=== PATIENT | female | born 1950 | race Caucasian/White ===

== ENCOUNTER → 2018-12-03 | Outpatient (CLI) | payer MEDICARE, OTHER ==
--- NOTE | 2018-12-03 09:14 | RAD ---
Left lower extremity bone length exam, 12/03/2018: HISTORY: Left knee osteoarthritis, surgical planning AP views of the left femur and lower leg were obtained with skin markers placed laterally as requested to facilitate preoperative bone length measurements. There is severe joint space narrowing, marginal spurring and mild lateral tibial subluxation at the left knee. No other significant abnormality is identified on these limited views. Electronically signed by: Ken Staley MD (12/03/2018 9:09 AM) [facility]
--- NOTE | 2018-12-03 11:24 | RAD ---
MR of the left knee - Gomez and Nephew protocol History: CHRONIC LEFT KNEE PAIN, GOMEZ AND NEPHEW PROTOCOL. Technique: Images are obtained in accordance with the standard Gomez and Nephew protocol. Note this is not a diagnostic exam, but solely for the purpose of Gomez and Nephew medical educator construction. Medial meniscal tear. Lateral meniscal tear. Anterior cruciate ligament is poorly defined. Severe generalized primary osteoarthritis. Probable posterior loose body. Moderate joint effusion. Small Piper's cyst. Electronically signed by: Akhil Umana MD (12/03/2018 11:20 AM) [id number]
== END | disposition home or self-care (01) ==
LOC: RAD 14:06
PROVIDERS: ATTEND Orthopaedic Surgery
DX: S83.242A Other tear of medial meniscus, current injury, left knee, initial encounter (principal); S83.282A Other tear of lateral meniscus, current injury, left knee, initial encounter; S83.192A Other subluxation of left knee, initial encounter; M17.12 Unilateral primary osteoarthritis, left knee; M25.462 Effusion, left knee; M71.22 Synovial cyst of popliteal space [Baker], left knee; M76.892 Other specified enthesopathies of left lower limb, excluding foot; X58.XXXA Exposure to other specified factors, initial encounter; Y93.89 Activity, other specified; Y92.89 Other specified places as the place of occurrence of the external cause; Y99.8 Other external cause status
CPT/HCPCS: 73721; 77073

== ENCOUNTER → 2018-12-27 | Outpatient (CLI) | payer MEDICARE, OTHER ==
[~2018-12-27] MED LIST: ATOR20TA58 PO; DIPH25CA58 PO; HYDR-2763 PO; IBUP200T58 PO; LISI-334 PO; MELO7.5T29 PO; METF500T16 PO; NAPR-514 PO; TRIA1TAB3 PO; VENTOLIN HFA18 GM INH
[2018-12-27 09:32] LABS: BASO # 0.1 x10^3/uL (0.0-0.2); BASO % 1 % (0-3); EOS # 0.4 x10^3/uL (0.0-0.7); EOS % 6 % (0-3); HEMATOCRIT 45.8 % (36.0-47.0); HEMOGLOBIN 14.9 g/dL (12.0-15.5); LYMPH # 1.5 x10^3/uL (1.0-4.8); LYMPH % 22 % (24-48); MEAN CORPUSCULAR HEMOGLOBIN 28 pg (25-35); MEAN CORPUSCULAR HGB CONC 33 g/dL (31-37); MEAN CORPUSCULAR VOLUME 85 fL (79-100); MONO # 0.6 x10^3/uL (0.0-1.1); MONO % 8 % (0-9); NEUT # 4.2 x10^3uL (1.8-7.7); NEUT % 63 % (31-73); PLATELET COUNT 294 x10^3/uL (140-400); RED BLOOD COUNT 5.38 x10^6/uL (3.50-5.40); RED CELL DISTRIBUTION WIDTH 14.1 % (11.5-14.5); WHITE BLOOD COUNT 6.7 x10^3/uL (4.0-11.0)
[2018-12-27 09:46] LABS: PROTHROMBIN TIME PATIENT 12.1 SEC (11.7-14.0)
[2018-12-27 09:54] LABS: ALBUMIN 3.6 g/dL (3.4-5.0); CALCIUM 9.4 mg/dL (8.5-10.1); GFR 54.8; POTASSIUM 3.9 mmol/L (3.5-5.1)
[2018-12-27 12:19] LABS: BILIRUBIN,URINE NEGATIVE (NEG); CLARITY,URINE CLEAR; COLOR,URINE YELLOW; NITRITE,URINE NEGATIVE (NEG); PROTEIN,URINE NEGATIVE (NEG-TRACE); UROBILINOGEN,URINE 0.2 mg/dL (0.2 mg/dL)
[2018-12-27 12:47] LABS: SQUAMOUS EPITHELIAL CELL,UR FEW /LPF
[2018-12-27 12:48] LABS: HYALINE CASTS, URINE MODERATE /HPF
[2018-12-27 12:49] LABS: BACTERIA,URINE 0 /HPF (0-FEW); RBC,URINE 0 /HPF (0-2); WBC,URINE OCC /HPF (0-4)
--- NOTE | 2018-12-27 13:08 | EKG ---
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
--- NOTE | 2018-12-27 16:44 | RAD ---
Chest, 2 views, 12/27/2018: HISTORY: Preop evaluation for an knee surgery The heart size and pulmonary vascularity are within normal limits. There is calcific plaquing and tortuosity of the thoracic aorta. A small 7 mm nodule is projected over the right perihilar region. No pulmonary consolidation is seen. There is no evidence of pleural fluid. Moderate marginal spurring is present in the spine. IMPRESSION: 1. Aortic atherosclerosis. 2. Small right perihilar pulmonary nodule. Comparison with previous chest radiographs if available would be most helpful. If none are available, CT scanning should be considered for further evaluation. Electronically signed by: Ken Staley MD (12/27/2018 4:41 PM) [facility]
[2018-12-27 23:09] LABS: HEMOGLOBIN A1C 6.8 % (4.8-5.6)
== END | disposition home or self-care (01) ==
LOC: SURGPAT 13:01
PROVIDERS: ATTEND Orthopaedic Surgery
DX: Z01.818 Encounter for other preprocedural examination (principal); M17.12 Unilateral primary osteoarthritis, left knee; I10 Essential (primary) hypertension; I70.0 Atherosclerosis of aorta; R91.1 Solitary pulmonary nodule
CPT/HCPCS: 36415; 71046; 80048; 81001; 82040; 82306; 83036; 85025; 85610; 85651; 85730; 87641; 93005

== ENCOUNTER 2019-01-18 05:38 | Inpatient (IN) | payer MEDICARE, OTHER ==
[2019-01-18] VITALS (9 sets, daily range): BP systolic 112–124; BP diastolic 56–66
[~2019-01-18] VITALS: Ht 170.2 cm; Wt 117.0 kg
[~2019-01-18 05:38] MED LIST changes: +BACITRACIN 50,000 UNIT in IV NORMAL SALINE 1000ML BAG 1,000 ML IRR ONE; -HYDR-2763 PO; -MELO7.5T29 PO
[2019-01-18] MEDS ORDERED: TRANEXAMIC ACID 1,000 MG in IV NS 50ML -- 1ST BAG INJ ONE (06:00)
[2019-01-18] MEDS ORDERED: HYDROcodone/APAP 7.5/325MG 1 TAB TABLET PO PRN (06:00)
[2019-01-18] MEDS ORDERED: MORPHINE SULFATE 5 MG, KETOROLAC 30MG VIAL 30 MG, ROPIVacaine 0.5% PF 60 ML, EPINEPHrin... INT ART ONE ×5 (06:00)
[2019-01-18] MEDS ORDERED: MELOXICAM 7.5 MG TABLET PO PRN (06:00)
[2019-01-18] MEDS ORDERED: VANCOMYCIN 1 GM VIAL. ONE (06:02)
[2019-01-18] MEDS ORDERED: TOBRAMYCIN POWDER 1.2 GM VIAL. ONE (06:02)
[2019-01-18] MEDS ORDERED: MELO7.5T29 PO (06:17)
[2019-01-18] MEDS: IV RINGERS,LACTATED 1000ML 1,000 ML IV SCH ×2 (06:37→10:57)
[2019-01-18] MEDS ORDERED: HYDR-2763 PO (06:44)
[2019-01-18] MEDS ORDERED: fentaNYL PF VIAL 100 MCG/2 ML VIAL IV PRN ×3 (07:00→09:45)
[2019-01-18] MEDS ORDERED: ONDANSETRON PF 4 MG/2 ML VIAL. IV PRN (07:00)
[2019-01-18] MEDS ORDERED: LIDOCAINE 1% PF 2 ML VIAL. ID PRN (07:00)
[2019-01-18] MEDS ORDERED: HYDROmorphone 2 MG/ML VIAL IV PRN (07:00)
[2019-01-18] MEDS ORDERED: MORPHINE SULFATE 2 MG/ML VIAL. IV PRN ×2 (07:00→09:45)
[2019-01-18] MEDS ORDERED: PROCHLORPERAZINE 10 MG/2 ML VIAL. IV PRN (07:00)
[2019-01-18] MEDS ORDERED: PROPOFOL 20 ML IV ONE (07:11)
[2019-01-18] MEDS ORDERED: FAMOTIDINE 20 MG/2 ML VIAL ONE (07:11)
[2019-01-18] MEDS ORDERED: DEXAMETHASONE SOD PHOS 20 MG/5 ML VIAL. ONE (07:11)
[2019-01-18] MEDS ORDERED: LIDOCAINE 2% PF 5 ML VIAL. ONE (07:11)
[2019-01-18] MEDS ORDERED: ONDANSETRON PF 4 MG/2 ML VIAL. ONE (07:11)
[2019-01-18] MEDS ORDERED: MIDAZOLAM HCL/PF 2 MG/2 ML VIAL. ONE (07:12)
[2019-01-18] MEDS ORDERED: fentaNYL PF VIAL 100 MCG/2 ML VIAL ONE ×2 (07:12→08:00)
[2019-01-18] MEDS ORDERED: ROCURONIUM 50 MG/5 ML VIAL. ONE (07:12)
[2019-01-18] MEDS ORDERED: KETOROLAC 30 MG/ML INJ FOR OR. INJ ONE (07:14)
--- NOTE | 2019-01-18 07:29 | PDOC1 ---
History and Physical Date of Admission Date of Admission DATE: 01/18/19 TIME: 07:21 Identification/Chief Complaint Chief Complaint left knee osteoarthritis pain Source Source: Chart review, Patient History of Present Illness History of Present Illness 68 year old with left knee pain, here for elective total knee arthroplasty. She' s been doing injections for both knees for about 15 years now. Initially it helped quite a bit but has been hoping less and less. Her last injection was with [facility] in . The knee arthritis is gotten so bad that she had to skip a cruise because the knee arthritis prevents her from walking. The left knee is the one that really prevents her from walking more than the right. She's been on NSAIDs, which she started for her shoulder and might be getting some relief to the knee but her knee is still painful. She is a borderline type II diabetic but is on metformin. History of smoking for 20 years but quit 31 years ago when she was 37 years old. She denies coronary artery disease. She is on medication for hypertension. She may have a nickel sensitivity, and she reports itching that occurs with earrings and I would recommend an Oxinium (low nickel, hypoallergenic) implant. Past Medical History Cardiovascular: HTN Past Surgical History Past Surgical History foot surgeries Family History Family History: Cancer, Hypertension Social History Smoke: Quit Current Medications Current Medications Current Medications Bacitracin 39567 unit/Sodium Chloride 1,000 ml @ 1,000 mls/hr 1X ONCE IRR ; Start 01/17/19 at 06:00; Stop 01/17/19 at 06:59; Status UNV Cefazolin Sodium/ Dextrose 50 ml @ 100 mls/hr 1X PREOP PRN IV PRIOR TO PROCEDURE; Start 01/17/19 at 06:00; Status UNV Ondansetron HCl (Zofran) 4 mg PRN Q6HRS PRN IV NAUSEA/VOMITING; Start 01/18/19 at 07:00; Stop 01/19/19 at 06:59 Fentanyl Citrate (Fentanyl 2ml Vial) 25 mcg PRN Q5MIN PRN IV MILD PAIN; Start 01/18/19 at 07:00; Stop 01/19/19 at 06:59 Fentanyl Citrate (Fentanyl 2ml Vial) 50 mcg PRN Q5MIN PRN IV MODERATE TO SEVERE PAIN; Start 01/18/19 at 07:00; Stop 01/19/19 at 06:59 Morphine Sulfate (Morphine Sulfate) 1 mg PRN Q10MIN PRN IV SEVERE PAIN; Start 01/18/19 at 07:00; Stop 01/19/19 at 06:59 Ringer's Solution 1,000 ml @ 30 mls/hr Q24H IV Last administered on 01/18/19at 06:37; Start 01/18/19 at 07:00; Stop 01/18/19 at 18:59 Lidocaine HCl (Xylocaine-Mpf 1% 2ml Vial) 2 ml PRN 1X PRN ID PRIOR TO IV START ; Start 01/18/19 at 07:00; Stop 01/19/19 at 06:59 Hydromorphone HCl (Dilaudid) 0.5 mg PRN Q10MIN PRN IV SEV PAIN, Second choice; Start 01/18/19 at 07:00; Stop 01/19/19 at 06:59 Prochlorperazine Edisylate (Compazine) 5 mg PACU PRN PRN IV NAUSEA, MRX1; Start 01/18/19 at 07:00; Stop 01/19/19 at 06:59 Morphine Sulfate 5 mg/Ketorolac Tromethamine 30 mg/Ropivacaine 60 ml/ Epinephrine HCl 0.5 mg/Sodium Chloride 100 ml @ 100 mls/hr 1X ONCE INT ART ; Start 01/18/19 at 06:00; Stop 01/18/19 at 07:00; Status DC Meloxicam (Mobic) 15 mg 1X PREOP PRN PO PRIOR TO PROCEDURE; Start 01/18/19 at 06:00; Stop 01/18/19 at 18:00 Acetaminophen/ Hydrocodone Bitart (Lortab 7.5/325) 2 tab 1X PREOP PRN PO PRIOR TO PROCEDURE; Start 01/18/19 at 06:00; Stop 01/18/19 at 18:00 Cefazolin Sodium/ Dextrose 50 ml @ 100 mls/hr 1X PREOP PRN IV PRIOR TO PROCEDURE; Start 01/18/19 at 06:00; Stop 01/18/19 at 18:00 Tranexamic Acid 1000 mg/Sodium Chloride 60 ml @ 60 mls/hr 1X PERIOP ONCE INJ ; Start 01/18/19 at 06:00; Stop 01/18/19 at 07:00; Status DC Tranexamic Acid 1000 mg/Sodium Chloride 60 ml @ 60 mls/hr 1X PERIOP ONCE INJ ; Start 01/18/19 at 08:00; Stop 01/18/19 at 08:59 Vancomycin HCl (Vancomycin) 1 gm STK-MED ONCE .ROUTE ; Start 01/18/19 at 06:02; Stop 01/18/19 at 07:03; Status DC Tobramycin Sulfate (Tobramycin Powder) 1.2 gm STK-MED ONCE .ROUTE ; Start at 06:02; Stop 01/18/19 at 07:03; Status DC Propofol 20 ml @ As Directed STK-MED ONCE IV ; Start 01/18/19 at 07:11; Stop 10/27 at 07:13; Status DC Dexamethasone Sodium Phosphate (Decadron) 20 mg STK-MED ONCE .ROUTE ; Start 10/27 at 07:11; Stop 01/18/19 at 07:13; Status DC Famotidine (Pepcid Vial) 20 mg STK-MED ONCE .ROUTE ; Start 01/18/19 at 07:11; Stop 01/18/19 at 07:13; Status DC Lidocaine HCl (Lidocaine Pf 2% Vial) 5 ml STK-MED ONCE .ROUTE ; Start 01/18/19 at 07:11; Stop 01/18/19 at 07:13; Status DC Ondansetron HCl (Zofran) 4 mg STK-MED ONCE .ROUTE ; Start 01/18/19 at 07:11; Stop 01/18/19 at 07:13; Status DC Rocuronium [place] (Zemuron) 50 mg STK-MED ONCE .ROUTE ; Start 01/18/19 at 07:12 ; Stop 01/18/19 at 07:13; Status DC Fentanyl Citrate (Fentanyl 2ml Vial) 100 mcg STK-MED ONCE .ROUTE ; Start at 07:12; Stop 01/18/19 at 07:13; Status DC Midazolam HCl (Versed) 2 mg STK-MED ONCE .ROUTE ; Start 01/18/19 at 07:12; Stop 01/18/19 at 07:13; Status DC Ketorolac Tromethamine (Toradol For Or Only) 30 mg STK-MED ONCE INJ ; Start 10/27 at 07:14; Stop 01/18/19 at 07:15; Status DC Active Scripts Active Reported Hydrocodone-Acetamin 7.5-325 (Hydrocodone/Acetaminophen) 1 Each Tablet 1 Each PO ONCE Meloxicam 7.5 Mg Tablet 15 Mg PO ONCE NIGHT PRIOR AND MORNING OF SURGERY Ventolin Hfa Inhaler (Albuterol Sulfate) 18 Gm Hfa.aer.ad 2 Puff INH QID Benadryl (Diphenhydramine Hcl) 25 Mg Capsule 25 Mg PO PRN DAILY PRN Advil (Ibuprofen) 200 Mg Tablet 400 Mg PO PRN BID PRN Lisinopril 20 Mg Tablet 20 Mg PO DAILY Naproxen 500 Mg Tablet 500 Mg PO PRN BID PRN Metformin Hcl 500 Mg Tablet 500 Mg PO BIDWMEALS Atorvastatin Calcium 20 Mg Tablet 20 Mg PO DAILY08 Triamterene-Hctz 37.5-25 Mg Tb (Triamterene/Hydrochlorothiazid) 1 Each Tablet 0.5 Tab PO DAILY Allergies Allergies: Coded Allergies: No Known Medication Allergies (Verified Allergy, Unknown, 12/27/18) Sulfa (Sulfonamide Antibiotics) (Verified Adverse Reaction, Intermediate, Nausea and Vomiting, 12/27/18) niacin (Verified Adverse Reaction, Intermediate, 12/27/18) HOT FLASHES ROS General: No: Chills, Night Sweats Eyes: No Double vision, No Loss of vision HEENT: No: Heacaches Hematological and Lymphatic: No: Blood Clots Respiratory: No: Cough, Hemoptysis, Pleuritic Pain Cardiovascular: No Chest Pain, No Palpitations Gastrointestinal: No Nausea, No Vomiting Genitourinary: No Dysuria, No Hematuria Musculoskeletal: Yes Joint Pain Physical Exam General: Alert, Cooperative HEENT: Atraumatic Lungs: Normal air movement Heart: RRR Abdomen: Soft Extremities: No clubbing, No cyanosis, No edema, Normal pulses, Other (Both hips have supple range of motion, full range of motion and pain-free, with no evidence on exam of hip osteoarthritis. Knee The RIGHT knee shows a mildly antalgic gait. There is varus alignment. No masses. No detectable effusion. Tenderness on the joint lines. Range of motion is 3-90 degrees. There is crepitus with range of motion, and pain at the extremes of motion. The knee is stable to varus and valgus stress without subluxation or laxity. Muscle strength is slightly weak for the quadriceps 4+/5 which may be due to pain or avoidance, and does not seem neurogenic, and the muscle tone and bulk is slightly decreased. The hamstring strength is 5/5. The skin is normal with no scars, rashes, lesions or ulcers. Light touch sensation is intact. No edema and no varicosities. Dorsalis pedis pulse is intact and capillary refill is normal The LEFT knee shows a mildly antalgic gait. There is varus alignment. No masses. No detectable effusion. Tenderness on the joint lines. Range of motion is 2-100 degrees. There is crepitus with range of motion, and pain at the extremes of motion. The knee is stable to varus and valgus stress without subluxation or laxity. Muscle strength is slightly weak for the quadriceps 4+/5 which may be due to pain or avoidance, and does not seem neurogenic, and the muscle tone and bulk is slightly decreased. The hamstring strength is 5/5. The skin is normal with no scars, rashes, lesions or ulcers. Light touch sensation is intact. No edema and no varicosities. Dorsalis pedis pulse is intact and capillary refill is normal. Ankle: She has a fixed pes planus deformity bilaterally which she says is long-standing. There is a possible chronic posterior tibial tendon dysfunction,, and she has distinct flatfeet which is potentially causing alignment issues above the ankle and foot to the knee. She did have scars on the right foot from the multiple corrective surgeries she describes. ) Neuro: Normal speech, Sensation intact Vitals Vitals Vital Signs Date Time Temp Pulse Resp B/P (MAP) Pulse Ox O2 Delivery O2 Flow Rate FiO2 01/18/19 06:19 98.6 66 16 94 98.6 Labs Labs Laboratory Tests Test 01/18/19 06:20 Glucose (Fingerstick) 118 mg/dL (70-99) Laboratory Tests Test 01/18/19 06:20 Glucose (Fingerstick) 118 mg/dL (70-99) Images Images Tricompartmental primary degenerative osteoarthritis of the left knee. VTE Prophylaxis Ordered VTE Prophylaxis Devices: Yes VTE Pharmacological Prophylaxi: Yes Assessment/Plan Assessment/Plan We discussed treatment of knee osteoarthritis. She certainly has tried extensive nonoperative treatment, and is no longer tolerating that, with obvious difficulties in walking short distances. Her quality of life (such as canceling the cruise) is significantly affected. Her other health is tolerable for joint replacement surgery, and her age is appropriate. She has severe deformities which might complicate the surgery somewhat. She might require ligament releases and more aggressive dissection, which increases the risk of late instability, infection, swelling, etc .She is very active otherwise, and would significantly benefit from surgery. I recommend the Visionaire preoperative templating for her, which should minimize exposure and ligament release difficulties intraoperatively with her severe deformities, and may help to evaluate and accommodate for her pes planus at both feet, since the feet and ankles are included on the standing x-ray used for the Visionaire planning. I would plan to use an Oxinium component due to her potential nickel allergy. She did have a nodule on x-ray which was later determined to have been long- standing. She saw her primary physician Dr. Dejesus, and was cleared for surgery. BRIAN HENRY MD Jan 18, 2019 07:29
[2019-01-18] MEDS ORDERED: 0.9 % SODIUM CHLORIDE 20 ML VIAL. IJ ONE (07:37)
[2019-01-18] MEDS ORDERED: TRANEXAMIC ACID 1,000 MG in IV NS 50ML -- 2ND BAG INJ ONE (08:00)
[2019-01-18] MEDS ORDERED: hydrALAZINE 20 MG/ML VIAL. ONE (08:10)
[2019-01-18] MEDS ORDERED: NEOSTIGMINE 10 MG/10 ML VIAL. ONE (08:41)
[2019-01-18] MEDS ORDERED: GLYCOPYRROLATE 1 MG/5 ML VIAL. ONE (08:41)
[2019-01-18] MEDS ORDERED: POVIDONE IODINE 10% TP ONE (08:52)
[2019-01-18] MEDS ORDERED: DESFLURANE > 120 MINUTES IH ONE (09:13)
--- NOTE | 2019-01-18 09:34 | PDOC4 ---
Operative Note Operative Note Date of Procedure: January 18, 2019 Pre-Op Diagnosis: Unilateral primary osteoarthritis, left knee. M17.12 Post-Op Diagnosis: same Procedure: left total knee arthroplasty with patella resurfacing, CPT 88894 Surgeon: Brian Tam MD Shot Core Drill Operator Helper: CHIP Chaudhari Anesthesia: General EBL: 100 mL Specimens Obtained: left knee bone and soft tissue Complications: none Implant Company: Retty patient-matched cutting blocks Drains: hemovac plus pain catheter Tourniquet time: 56 Minutes Tourniquet Pressure: 350 mm Hg Indications for Procedure: Arthritis pain unrelieved by nonoperative management. Findings: Severe osteoarthritis with bone on bone contact in all three compartments severe deformities. Medial tibiofemoral release required. Implants used: Size 4 left bicruciate stabilized Journey II BCS Oxinium femoral component, size 3 left Journey nonporous tibial baseplate, size 3-4 13 mm left Journey II BCS XLPE articular insert, 32 mm oval Nafisa II resurfacing patellar component Procedure in Detail: The patient was identified in the preoperative holding area, and the correct left lower extremity was marked by me. The patient was taken to the operating room where the patient was anesthetized by the Department of Anesthesia. Preoperative antibiotics were given intravenously. Tranexamic acid 1 g was given intravenously for intraoperative hemostasis. A "time-out" procedure was performed. The patient was positioned supine on the operative table with a tourniquet on the upper left thigh. The left lower limb was thoroughly scrubbed , then sterile surgical prep solution was applied, and the limb was draped in sterile fashion. An impervious stockinet and adhesive drape were used such that the skin was entirely covered. An Hale leg henson was used. The operating team wore personal exhaust-ventilated hoods. The limb exsanguinated with an Esmarch bandage, and the tourniquet was inflated. A midline skin incision was made with a scalpel using the patella and tibial tubercle as landmarks. Electrocautery was used for hemostasis. My physical therapy assistant used rake retractors. A medial parapatellar arthrotomy incision was used with extension into the distal quadriceps tendon. The patella was retracted laterally and Hohmann retractors were now used by my physical therapy assistant. Excess synovium, the menisci, and the cruciate ligaments were resected sharply. The patella was assessed and excess synovium and osteophytes around the patellar articulation were removed. The patella was measured with a caliper, cut freehand with a saw using caliper measurements, sized, and then drilled for an oval three-pegged patella component. A periarticular multimodal ropivacaine anesthetic injection was used in the suprapatellar pouch and distal quadriceps muscle. The Visionaire patient-matched cutting block was used, and pinned to the distal femur. The distal femoral cut was made, while my physical therapy assistant held Hohmann retractors and an [facility] retractor to protect the soft tissues. A 5-in-1 Journey II cutting guide was then applied and pinned to the femur. The posterior, anterior, and all chamfer cuts were made with the oscillating saw. The patient-matched cutting guide was pinned to the tibia. An external alignment daija was used to verify the planned cut in the varus-valgus plane and regarding posterior slope referencing the tibial tubercle, the tibial shaft, the ankle joint, and the second metatarsal. The upper tibia was cut made with an oscillating saw. My physical therapy assistant held Hohmann retractors and a posterior cruciate ligament retractor to protect the medial and lateral collateral ligaments, the patellar tendon, the skin, the peroneal nerve and the other soft tissues. The upper tibia was sized with a trial baseplate. The posterior compartment was cleared of osteophytes and loose bodies. The periarticular anesthetic injection was used in the posterior compartment. The box cut for a posterior stabilized component was made. A preliminary reduction was performed with a trial femur, trial tibial baseplate and trial polyethylene. Soft-tissue balancing was now performed, and extension and rotation of the alignments was checked using a guide daija in the tibial trial and a guide pin in the femur. A medial release was required, using a 10 blade scalpel, and a Gross elevator to elevate the medial structures from the upper medial tibia. The stability was assessed using different thicknesses of tibial articular surface to find satisfactory stability and good range of motion. The rotation of the tibial component was marked on the upper tibia. Final trial reduction was now performed verifying patella tracking and tibiofemoral stability and alignment. The tibia preparation was completed with a drill, saw, and fin punch at the previously noted rotation. The final implants were verified and opened. Outer gloves were changed by the operating team. The bone cuts were washed thoroughly with the [place] InterPulse device and dried. Two packages of Gomez + Nephew Rally HV bone cement were mixed in powdered form with Vancomycin 1gm and Tobramycin 1.2 gm, and then vacuum-mixed with the monomer, and placed into a cement gun. The cut surfaces of the bone were thoroughly dried with Jules-tip suction and with laparotomy sponges for cement interdigitation. The final components were cemented into place. The knee was kept at full extension while the cement hardened, and excess cement was removed. A Betadine lavage was used throughout the surgical exposure, and allowed to sit in contact with the exposed joint surfaces for three minutes while the cement hardened. Tranexamic acid 1 g was redosed intravenously for additional intraoperative hemostasis. The tourniquet was released, and electrocautery was used for hemostasis. A final periarticular anesthetic injection was used for pain relief. A final check of [id number] and stability was made, and the polyethylene implant final size was chosen. The polyethylene implant was secured to the tibial baseplate, and the knee was reduced a final time and range of motion and stability was confirmed. Thorough irrigation was used. Hemovac and pain catheter were used.The arthrotomy was closed with interrupted [id number] # 1 PDS suture. The arthrotomy incision was then run with #1 STRATAFIX Symmetric PDS Plus Knotless suture. The subcutaneous tissues were reapproximated initially with 2-0 PDS . Next the subcuticular layer was reapproximated in a running fashion with #3-0 Stratafix suture by my physical therapy assistant. The skin incision was then covered and reinforced with Acticoat, followed by a NATASHA single use negative pressure wound therapy dressing Soft roll and an Randy wrap were applied. Needle and sponge counts were correct. There were no apparent complications. The patient returned to the recovery room in stable condition. BRIAN TAM MD Jan 18, 2019 09:34
[2019-01-18] MEDS ORDERED: 0.9 % SODIUM CHLORIDE 10 ML DISP.SYRIN. IV PRN (09:45)
[2019-01-18] MEDS ORDERED: MORPHINE SULFATE 4 MG/ML VIAL. IV PRN (09:45)
[2019-01-18] MEDS ORDERED: ZOLPIDEM 5 MG TABLET. PO PRN (09:45)
[2019-01-18] MEDS ORDERED: diphenhydrAMINE HCL 25 MG CAPSULE PO PRN (09:45)
[2019-01-18] MEDS ORDERED: PROCHLORPERAZINE 5 MG TABLET. PO PRN (09:45)
[2019-01-18] MEDS ORDERED: diphenhydrAMINE 50 MG/ML VIAL IV PRN (09:45)
[2019-01-18] MEDS ORDERED: METOCLOPRAMIDE HCL 10 MG/2 ML VIAL. IV PRN (09:45)
[2019-01-18] MEDS ORDERED: DEXTROSE 50% 25 GM / 50ML DISP.SYRIN. IV PRN (09:45)
[2019-01-18] MEDS ORDERED: CALCIUM CARBONATE 500 MG TAB.CHEW PO PRN (09:45)
[2019-01-18] MEDS: fentaNYL PF VIAL 100 MCG/2 ML VIAL IV PRN ×2 (10:17→10:29)
--- NOTE | 2019-01-18 10:40 | RAD ---
Two-view left knee dated 01/18/2019. Comparison made to 12/03/2018. Clinical data indication: Post knee arthroplasty. FINDINGS: 2 views left knee show interval total knee arthroplasty. Femoral and tibial components are intact. No periprosthetic fracture or malalignment. Postsurgical changes of the patella. There is diffuse soft tissue swelling and soft tissue gas. Suprapatellar drain in place. IMPRESSION: Status post right knee arthroplasty. Electronically signed by: Akhil Young MD (01/18/2019 10:36 AM) [id number]
[2019-01-18] MEDS: ONDANSETRON PF 4 MG/2 ML VIAL. IV SCH ×2 (12:30→18:00)
[2019-01-18] MEDS: ONDANSETRON ODT 4 MG TAB.RAPDIS. PO SCH ×2 (12:30→18:00)
[2019-01-18] MEDS: INSULIN LISPRO 300 UNITS/3 ML INSULN.PEN. SQ SCH ×2 (12:30→16:59)
--- NOTE | 2019-01-18 12:45 | NUR ---
1135 Rec'd from PACU per bed, alert/oriented, states discomfort level 5/10, outer wrap to LLE intact, Hemovac & IAC in place, IAC catheter tubing lengthened, Hemovac was clamped, unclamped, MARC placed on LLE, SCD on RLE, IVF infusing into left dorsal hand, oriented to surroundings, call light within reach, spouse at bedside
--- NOTE | 2019-01-18 12:49 | NUR ---
PO/IV zofran held no nausea or vomiting
--- NOTE | 2019-01-18 12:55 | NUR ---
Post op fingerstick 212, insulin held no calories consumed
[2019-01-18] MEDS ORDERED: NON FORMULARY ITEM (Albuterol Sulfate (Ventolin Hfa Inhaler) 2 PUFF) INH SCH (13:00)
[2019-01-18] MEDS: ALBUTEROL SULFATE 2.5 MG/3 ML NEBU. NEB SCH ×2 (15:29→20:17)
[2019-01-18] MEDS: oxyCODONE/APAP 5/325 1 TAB TABLET PO PRN ×2 (15:48→22:18)
[2019-01-18] MEDS: metFORMIN 500 MG TABLET PO SCH (16:55)
[2019-01-18] MEDS: KETOROLAC 30MG VIAL 30 MG, BUPIVACAINE MPF 0.25% 20 ML, EPINEPHrine 0.5 MG in TOTAL VOL... INT ART SCH (18:25)
--- NOTE | 2019-01-18 18:31 | NUR ---
Zofran IV/PO held no nausea or vomiting
[2019-01-18] MEDS: IV NORMAL SALINE 1000ML BAG 1,000 ML IV SCH (19:24)
[2019-01-18] MEDS: ATORVASTATIN CALCIUM 20 MG TABLET PO SCH (20:41)
[2019-01-18] MEDS: ASPIRIN ENTERIC COATED 325 MG TABLET.DR. PO SCH (20:41)
[2019-01-19 02:32] VITALS: BP 118/60
[2019-01-19 04:44] LABS: HEMATOCRIT 33.8 % (36.0-47.0); HEMOGLOBIN 10.9 g/dL (12.0-15.5)
[2019-01-19] MEDS: KETOROLAC 30MG VIAL 30 MG, BUPIVACAINE MPF 0.25% 20 ML, EPINEPHrine 0.5 MG in TOTAL VOL... INT ART SCH (05:34)
[2019-01-19] MEDS: ONDANSETRON ODT 4 MG TAB.RAPDIS. PO SCH ×2 (06:00)
[2019-01-19] MEDS: ONDANSETRON PF 4 MG/2 ML VIAL. IV SCH ×2 (06:00)
[2019-01-19] MEDS ORDERED: MAGNESIUM HYDROXIDE 2,400 MG/30 ML ORAL.SUSP. PO PRN (06:00)
[2019-01-19 06:28] VITALS: BP 115/59
[2019-01-19] MEDS: ALBUTEROL SULFATE 2.5 MG/3 ML NEBU. NEB SCH ×4 (06:47→19:33)
--- NOTE | 2019-01-19 07:41 | PDOC ---
ORTHO PROGRESS NOTES Subjective Patient sitting up in chair at bedside with no new complaints Post-op Day: 1 Procedure L TKA Vitals Vital Signs Date Time Temp Pulse Resp B/P (MAP) Pulse Ox O2 Delivery O2 Flow Rate FiO2 01/19/19 06:47 95 Nasal Cannula 3.0 01/19/19 06:28 98.9 76 20 115/59 (77) 98.9 Labs Laboratory Tests Test 01/18/19 06:20 01/18/19 10:19 01/18/19 16:51 01/18/19 20:35 Glucose (Fingerstick) 118 mg/dL (70-99) 212 mg/dL (70-99) 174 mg/dL (70-99) 181 mg/dL (70-99) Test 01/19/19 04:20 01/19/19 06:23 Hemoglobin 10.9 g/dL (12.0-15.5) Hematocrit 33.8 % (36.0-47.0) Mean Corpuscular Hemoglobin Concent 32 g/dL (31-37) Glucose (Fingerstick) 116 mg/dL (70-99) Laboratory Tests Test 01/18/19 10:19 01/18/19 16:51 01/18/19 20:35 01/19/19 04:20 Glucose (Fingerstick) 212 mg/dL (70-99) 174 mg/dL (70-99) 181 mg/dL (70-99) Hemoglobin 10.9 g/dL (12.0-15.5) Hematocrit 33.8 % (36.0-47.0) Mean Corpuscular Hemoglobin Concent 32 g/dL (31-37) Test 01/19/19 06:23 Glucose (Fingerstick) 116 mg/dL (70-99) Notes Awake and alert Minimal c/o pain at this time Assessment and Plan POD#1 S/P L TKA motor and sensory intact distally moving toes and feet on request Pain over lateral knee at drain sight PT today BERTA HAYDEN APRN Jan 19, 2019 07:41
[2019-01-19] MEDS: INSULIN LISPRO 300 UNITS/3 ML INSULN.PEN. SQ SCH ×3 (08:00→16:56)
[2019-01-19] MEDS: metFORMIN 500 MG TABLET PO SCH ×2 (08:10→16:57)
[2019-01-19] MEDS: MELOXICAM 7.5 MG TABLET PO SCH (08:10)
[2019-01-19] MEDS: ASPIRIN ENTERIC COATED 325 MG TABLET.DR. PO SCH ×2 (08:10→20:56)
[2019-01-19] MEDS: SENNOSIDES/DOCUSATE 8.6/50MG TABLET. PO SCH (08:11)
[2019-01-19] MEDS: oxyCODONE/APAP 5/325 1 TAB TABLET PO PRN ×3 (08:14→19:55)
[2019-01-19] MEDS: MULTIVITAMIN with MINERAL TABLET. PO SCH (08:14)
[2019-01-19] MEDS ORDERED: ONDANSETRON ODT 4 MG TAB.RAPDIS. PO PRN (12:00)
[2019-01-19] MEDS ORDERED: ONDANSETRON PF 4 MG/2 ML VIAL. IV PRN (12:00)
[2019-01-19] MEDS: TRIAMTERENE/HCTZ 37.5/25MG TABLET. PO SCH (12:28)
[2019-01-19] MEDS: LISINOPRIL 20 MG TABLET PO SCH (12:29)
[2019-01-19] MEDS: IV NORMAL SALINE 1000ML BAG 1,000 ML IV SCH (12:30)
[2019-01-19] MEDS ORDERED: BISACODYL 10 MG SUPP.RECT. PR PRN (16:00)
[2019-01-19 17:20] VITALS: BP 119/64
[2019-01-19] MEDS: ATORVASTATIN CALCIUM 20 MG TABLET PO SCH (20:56)
[2019-01-20 05:15] VITALS: BP 124/69
[2019-01-20 05:15] LABS: HEMATOCRIT 34.4 % (36.0-47.0); HEMOGLOBIN 11.4 g/dL (12.0-15.5)
[2019-01-20] MEDS: ALBUTEROL SULFATE 2.5 MG/3 ML NEBU. NEB SCH ×4 (07:20→19:37)
[2019-01-20] MEDS: INSULIN LISPRO 300 UNITS/3 ML INSULN.PEN. SQ SCH ×3 (08:00→16:54)
[2019-01-20] MEDS: MULTIVITAMIN with MINERAL TABLET. PO SCH (08:09)
[2019-01-20] MEDS: metFORMIN 500 MG TABLET PO SCH ×2 (08:09→16:57)
[2019-01-20] MEDS: MELOXICAM 7.5 MG TABLET PO SCH (08:09)
[2019-01-20] MEDS: ASPIRIN ENTERIC COATED 325 MG TABLET.DR. PO SCH ×2 (08:10→20:50)
[2019-01-20] MEDS: SENNOSIDES/DOCUSATE 8.6/50MG TABLET. PO SCH (08:10)
[2019-01-20] MEDS: oxyCODONE/APAP 5/325 1 TAB TABLET PO PRN ×3 (08:10→18:50)
[2019-01-20] MEDS: LISINOPRIL 20 MG TABLET PO SCH (08:12)
[2019-01-20] MEDS: TRIAMTERENE/HCTZ 37.5/25MG TABLET. PO SCH (08:12)
--- NOTE | 2019-01-20 11:53 | PDOC ---
PROGRESS NOTES Subjective Subjective Pain controlled. No major complaints. Objective Vital Signs Vital Signs Date Time Temp Pulse Resp B/P (MAP) Pulse Ox O2 Delivery O2 Flow Rate FiO2 01/20/19 09:10 Room Air 01/20/19 08:12 81 129/57 01/20/19 07:20 90 01/20/19 05:15 98.3 18 2.0 98.3 Physical Exam Postop dressing and pain catheter have been removed. Spotty bloody drainage only. Calf soft and nontender. Good AROM of ankle. Minimal erythema/warmth. Not yet safely ambulating with walker. Requires PT or nursing assistance, and gait belt for safe transition from chair or bed to walker. Labs Laboratory Tests Test 01/18/19 16:51 01/18/19 20:35 01/19/19 04:20 01/19/19 06:23 Glucose (Fingerstick) 174 mg/dL (70-99) 181 mg/dL (70-99) 116 mg/dL (70-99) Hemoglobin 10.9 g/dL (12.0-15.5) Hematocrit 33.8 % (36.0-47.0) Mean Corpuscular Hemoglobin Concent 32 g/dL (31-37) Test 01/19/19 11:27 01/19/19 16:46 01/19/19 20:27 01/20/19 04:55 Glucose (Fingerstick) 108 mg/dL (70-99) 109 mg/dL (70-99) 124 mg/dL (70-99) Hemoglobin 11.4 g/dL (12.0-15.5) Hematocrit 34.4 % (36.0-47.0) Mean Corpuscular Hemoglobin Concent 33 g/dL (31-37) Test 01/20/19 06:28 01/20/19 11:10 Glucose (Fingerstick) 90 mg/dL (70-99) 77 mg/dL (70-99) Laboratory Tests Test 01/19/19 16:46 01/19/19 20:27 01/20/19 04:55 01/20/19 06:28 Glucose (Fingerstick) 109 mg/dL (70-99) 124 mg/dL (70-99) 90 mg/dL (70-99) Hemoglobin 11.4 g/dL (12.0-15.5) Hematocrit 34.4 % (36.0-47.0) Mean Corpuscular Hemoglobin Concent 33 g/dL (31-37) Test 01/20/19 11:10 Glucose (Fingerstick) 77 mg/dL (70-99) Imaging Postoperative x-rays and report reviewed by me and show satisfactory alignment and no apparent complications. Assessment Assessment POD #2 TKA Plan Plan of Care Continue POC. Discharge planning for tomorrow. Aspirin 325 mg po BID and mobilization for DVT prophylaxis. BRIAN HENRY MD Jan 20, 2019 11:53
[2019-01-20] MEDS: IV NORMAL SALINE 1000ML BAG 1,000 ML IV SCH (12:30)
--- NOTE | 2019-01-20 13:09 | PATHOLOGY ---
[facility] Accession Number: [id number] . 01 Material submitted: . LEFT KNEE BONE . 02 Diagnosis: Segments of bone and soft tissue, left total knee arthroplasty: - Advanced degenerative arthritis. (JPM/db; 01/19/2019) LBQ/01/19/2019 . 02 Electronically signed: . Alvaro Ospina MD, Pathologist NPI- [id number] . 01 Gross description: . The specimen is received in formalin, labeled "Bowdre, Marguerite, left knee bone", are multiple segments of grande bone consisting of a portion of tibia plateau and patella and attached vallejo-white fibrous tissue and a segment of meniscus measuring 14 x 10.7 x 2.0 cm in aggregate. Eburnation and peripheral osteophytes are identified. Patient Safety Manager tissue is submitted in A1 after decalcification. ([facility]; 01/18/2019) SHS/SHS . 02 Pathologist provided ICD-10: M17.12 . 02 CPT . 962615, 849085 Specimen Comment: A courtesy copy of this report has been sent to Specimen Comment: [phone], . Specimen Comment: Report sent to / DR SPEARS Performed at: 01 [facility] [address], [place] [id number] MD Keaton Mabry MD Phone: [phone] Performed at: 02 [facility] [address] [place], [place] [id number] MD Alvaro Ospina MD Phone: [phone]
[2019-01-20 13:45] VITALS: BP 164/107
[2019-01-20 17:40] VITALS: BP 122/61
[2019-01-20] MEDS: ATORVASTATIN CALCIUM 20 MG TABLET PO SCH (20:50)
[2019-01-21] MEDS: oxyCODONE/APAP 5/325 1 TAB TABLET PO PRN ×3 (01:16→13:37)
[2019-01-21 06:00] VITALS: BP 130/71
[2019-01-21] MEDS: ALBUTEROL SULFATE 2.5 MG/3 ML NEBU. NEB SCH ×2 (07:37→11:31)
[2019-01-21 07:47] LABS: HEMATOCRIT 34.2 % (36.0-47.0); HEMOGLOBIN 11.2 g/dL (12.0-15.5)
[2019-01-21] MEDS: INSULIN LISPRO 300 UNITS/3 ML INSULN.PEN. SQ SCH ×2 (07:48→11:28)
[2019-01-21 08:07] VITALS: BP 120/70
[2019-01-21] MEDS: metFORMIN 500 MG TABLET PO SCH (08:10)
[2019-01-21] MEDS: SENNOSIDES/DOCUSATE 8.6/50MG TABLET. PO SCH (08:10)
[2019-01-21] MEDS: MULTIVITAMIN with MINERAL TABLET. PO SCH (08:10)
[2019-01-21] MEDS: ASPIRIN ENTERIC COATED 325 MG TABLET.DR. PO SCH (08:10)
[2019-01-21] MEDS: LISINOPRIL 20 MG TABLET PO SCH (08:11)
[2019-01-21] MEDS: MELOXICAM 7.5 MG TABLET PO SCH (08:11)
[2019-01-21] MEDS: TRIAMTERENE/HCTZ 37.5/25MG TABLET. PO SCH (08:11)
--- NOTE | 2019-01-21 09:43 | PDOC ---
PROGRESS NOTES Subjective Subjective No complaints. Planning on discharge today to home. Objective Vital Signs Vital Signs Date Time Temp Pulse Resp B/P (MAP) Pulse Ox O2 Delivery O2 Flow Rate FiO2 01/21/19 08:29 Room Air 01/21/19 08:11 83 120/70 01/21/19 07:39 91 01/21/19 06:00 98.2 20 2.0 98.2 Physical Exam NATASHA intact and dry. Good AROM ankle. Calf soft and nontender. Minimal warmth or erythema. Labs Laboratory Tests Test 01/19/19 11:27 01/19/19 16:46 01/19/19 20:27 01/20/19 04:55 Glucose (Fingerstick) 108 mg/dL (70-99) 109 mg/dL (70-99) 124 mg/dL (70-99) Hemoglobin 11.4 g/dL (12.0-15.5) Hematocrit 34.4 % (36.0-47.0) Mean Corpuscular Hemoglobin Concent 33 g/dL (31-37) Test 01/20/19 06:28 01/20/19 11:10 01/20/19 16:45 01/20/19 20:51 Glucose (Fingerstick) 90 mg/dL (70-99) 77 mg/dL (70-99) 148 mg/dL (70-99) 136 mg/dL (70-99) Test 01/21/19 07:20 Hemoglobin 11.2 g/dL (12.0-15.5) Hematocrit 34.2 % (36.0-47.0) Mean Corpuscular Hemoglobin Concent 33 g/dL (31-37) Laboratory Tests Test 01/20/19 11:10 01/20/19 16:45 01/20/19 20:51 01/21/19 07:20 Glucose (Fingerstick) 77 mg/dL (70-99) 148 mg/dL (70-99) 136 mg/dL (70-99) Hemoglobin 11.2 g/dL (12.0-15.5) Hematocrit 34.2 % (36.0-47.0) Mean Corpuscular Hemoglobin Concent 33 g/dL (31-37) Assessment Assessment POD #3 TKA Plan Plan of Care Discharge planning for today. Continue PT and DVT prophylaxis. F/U 10-14 days in office. BRIAN HENRY MD Jan 21, 2019 09:43
--- NOTE | 2019-01-21 09:47 | PDOC3 ---
Discharge Summary Visit Information Date of Admission: Jan 18, 2019 Date of Discharge: Jan 21, 2019 Admitting Diagnosis: left knee osteoarthritis Final Diagnosis left knee osteoarthritis Brief Hospital Course Allergies Allergies Coded Allergies Type Severity Reaction Last Updated Verified No Known Medication Allergies Allergy Unknown 12/27/18 Yes Sulfa (Sulfonamide Antibiotics) Adverse Reaction Intermediate Nausea and Vomiting 12/27/18 Yes niacin Adverse Reaction Intermediate 12/27/18 Yes Vital Signs Vital Signs Date Time Temp Pulse Resp B/P (MAP) Pulse Ox O2 Delivery O2 Flow Rate FiO2 01/21/19 08:29 Room Air 01/21/19 08:11 83 120/70 01/21/19 07:39 91 01/21/19 06:00 98.2 20 2.0 98.2 Lab Results Laboratory Tests Test 01/19/19 11:27 01/19/19 16:46 01/19/19 20:27 01/20/19 04:55 Glucose (Fingerstick) 108 mg/dL (70-99) 109 mg/dL (70-99) 124 mg/dL (70-99) Hemoglobin 11.4 g/dL (12.0-15.5) Hematocrit 34.4 % (36.0-47.0) Mean Corpuscular Hemoglobin Concent 33 g/dL (31-37) Test 01/20/19 06:28 01/20/19 11:10 01/20/19 16:45 01/20/19 20:51 Glucose (Fingerstick) 90 mg/dL (70-99) 77 mg/dL (70-99) 148 mg/dL (70-99) 136 mg/dL (70-99) Test 01/21/19 07:20 Hemoglobin 11.2 g/dL (12.0-15.5) Hematocrit 34.2 % (36.0-47.0) Mean Corpuscular Hemoglobin Concent 33 g/dL (31-37) Laboratory Tests Test 01/20/19 11:10 01/20/19 16:45 01/20/19 20:51 01/21/19 07:20 Glucose (Fingerstick) 77 mg/dL (70-99) 148 mg/dL (70-99) 136 mg/dL (70-99) Hemoglobin 11.2 g/dL (12.0-15.5) Hematocrit 34.2 % (36.0-47.0) Mean Corpuscular Hemoglobin Concent 33 g/dL (31-37) Brief Hospital Course 68 old who presented with knee osteoarthritis, for elective total knee arthroplasty. The patient underwent total knee arthroplasty under general anesthesia the day of admission. Perioperative antibiotics and DVT prophylaxis were used. Postoperatively physical therapy and case management were consulted. The patient progressed and is stable for discharge. Discharge Information Condition at Discharge: Stable Follow Up: Weeks Disposition/Orders: D/C to Home Scheduled Albuterol Sulfate (Ventolin Hfa Inhaler), 2 PUFF INH QID, (Reported) Atorvastatin Calcium (Atorvastatin Calcium), 20 MG PO DAILY08, (Reported) Lisinopril (Lisinopril), 20 MG PO DAILY, (Reported) Meloxicam (Meloxicam), 15 MG PO ONCE, (Reported) Metformin Hcl (Metformin Hcl), 500 MG PO BIDWMEALS, (Reported) Triamterene/Hydrochlorothiazid (Triamterene-Hctz 37.5-25 Mg Tb), 0.5 TAB PO DAILY, (Reported) Scheduled PRN Diphenhydramine Hcl (Benadryl), 25 MG PO PRN DAILY PRN for ITCHING, (Reported) Discontinued Medications Hydrocodone/Acetaminophen (Hydrocodone-Acetamin 7.5-325), 1 EACH PO ONCE, ( Reported) Ibuprofen (Advil), 400 MG PO PRN BID PRN for P, (Reported) Naproxen (Naproxen), 500 MG PO PRN BID PRN for PAIN, (Reported) Patient Instructions Patient Instructions Patient Instructions Continue to WBAT with walker. Keep dressing dry and intact. F/U with Dr. Tam in 10-14 days. Call for appointment. Physical therapy for TKA Continue DVT prophylaxis with aspirin BID BRIAN TAM MD Jan 21, 2019 09:47
[2019-01-21 11:00] VITALS: BP 142/63
[2019-01-21] MEDS: IV NORMAL SALINE 1000ML BAG 1,000 ML IV SCH (11:29)
--- NOTE | 2019-01-21 13:51 | NUR ---
Discharge instructions given with follow up to Dr. Tam as scheduled, supplies given-ice pack, Chloraprep swab sticks, Aqua Tish foam dressing, medigrip, see instruction sheets for details
== END 2019-01-21 14:12 | disposition home or self-care (01) | DRG 470 ==
LOC: OPSVCIP 05:38 → 4 SOUTHEST 11:35
PROVIDERS: ADMIT Orthopaedic Surgery; ATTEND Orthopaedic Surgery
PROC: 0SRD069 Replacement of Left Knee Joint with Oxidized Zirconium on Polyethylene Synthetic Substitute, Cemented, Open Approach (ICD-10-PCS; principal; 2019-01-18 07:10)
DX: M17.12 Unilateral primary osteoarthritis, left knee (principal); I10 Essential (primary) hypertension; M21.42 Flat foot [pes planus] (acquired), left foot; M21.41 Flat foot [pes planus] (acquired), right foot; Z79.899 Other long term (current) drug therapy; Z87.891 Personal history of nicotine dependence; Z82.49 Family history of ischemic heart disease and other diseases of the circulatory system; Z80.9 Family history of malignant neoplasm, unspecified
CPT/HCPCS: 36415; 73560; 82962; 85014; 85018; 86850; 86900; 86901; 88305; 88311; 94640; 94760; A7015; C1713; J0171; J0360; J0696; J1100; J1170; J1815; J1885; J2001; J2250; J2270; J2405; J2704; J2710; J2795; J3010; J3260; J3370; J3490; J7030; J7120; J7613; 97110; 97116; 97150; 97530; 97535; A4461; C1769

== ENCOUNTER → 2019-06-28 | Outpatient (CLI) | payer MEDICARE, OTHER ==
[2019-01-20 08:12] VITALS: BP 129/57
[~2019-06-28] MED LIST changes: +ASPI325T11 PO; -BACITRACIN 50,000 UNIT in IV NORMAL SALINE 1000ML BAG 1,000 ML IRR ONE; +HYDR-2763 PO; +MELO7.5T29 PO; +NAPR-683 PO; +OXYC1TAB15 PO
[2019-06-28 13:36] LABS: BASO # 0.1 x10^3/uL (0.0-0.2); BASO % 1 % (0-3); EOS # 0.4 x10^3/uL (0.0-0.7); EOS % 4 % (0-3); HEMATOCRIT 42.5 % (36.0-47.0); HEMOGLOBIN 14.1 g/dL (12.0-15.5); LYMPH % 21 % (24-48); MEAN CORPUSCULAR HEMOGLOBIN 28 pg (25-35); MEAN CORPUSCULAR HGB CONC 33 g/dL (31-37); MEAN CORPUSCULAR VOLUME 85 fL (79-100); MONO # 0.7 x10^3/uL (0.0-1.1); MONO % 7 % (0-9); NEUT # 6.3 x10^3/uL (1.8-7.7); NEUT % 67 % (31-73); PLATELET COUNT 303 x10^3/uL (140-400); RED BLOOD COUNT 4.98 x10^6/uL (3.50-5.40); RED CELL DISTRIBUTION WIDTH 14.8 % (11.5-14.5); WHITE BLOOD COUNT 9.4 x10^3/uL (4.0-11.0)
[2019-06-28 13:49] LABS: CALCIUM 8.9 mg/dL (8.5-10.1); GFR 54.8
[2019-06-28 13:58] LABS: BILIRUBIN,URINE NEGATIVE (NEG); CLARITY,URINE CLEAR; COLOR,URINE YELLOW; NITRITE,URINE NEGATIVE (NEG); PROTEIN,URINE NEGATIVE (NEG-TRACE); UROBILINOGEN,URINE 0.2 mg/dL (0.2 mg/dL)
[2019-06-28 13:59] LABS: PROTHROMBIN TIME PATIENT 12.2 SEC (11.7-14.0)
[2019-06-28 14:07] LABS: BACTERIA,URINE 0 /HPF (0-FEW); RBC,URINE 0 /HPF (0-2); SQUAMOUS EPITHELIAL CELL,UR OCC /LPF; WBC,URINE OCC /HPF (0-4)
[2019-06-29 01:09] LABS: HEMOGLOBIN A1C 6.6 % (4.8-5.6)
== END | disposition home or self-care (01) ==
LOC: SURGPAT 12:03
PROVIDERS: ATTEND Orthopaedic Surgery
DX: Z01.818 Encounter for other preprocedural examination (principal); M17.11 Unilateral primary osteoarthritis, right knee; Z79.891 Long term (current) use of opiate analgesic; Z79.899 Other long term (current) drug therapy; Z88.2 Allergy status to sulfonamides; Z88.8 Allergy status to other drugs, medicaments and biological substances
CPT/HCPCS: 36415; 80048; 81001; 82306; 83036; 85025; 85610; 85651; 85730; 87086; 87641

== ENCOUNTER 2019-07-19 05:47 | Inpatient (IN) | payer MEDICARE, OTHER ==
--- NOTE | 2019-07-18 12:37 | PDOC1 ---
History and Physical Date of Admission Date of Admission 07/19/2019 Identification/Chief Complaint Chief Complaint Right knee osteoarthritis pain Source Source: Chart review History of Present Illness History of Present Illness 69-year-old who had a left total knee arthroplasty on 01/18/2019. She had a cortisone injection into the right knee on 02/28/19. She is very happy with the results of the surgery and states that her left knee is doing "awesome". The injection in her right knee offered minimal relief and she would like it replaced as a result. Her right knee continues to bother her on a daily basis and reports functional limitations due to pain. Past Medical History Cardiovascular: HTN Past Surgical History Past Surgical History right foot multiple corrective surgeries 2014 hemorrhoid surgery breast cyst Left Total Knee Arthroplasty Nelly Carballo II Oxinium Femur 4, Tibia 3, Poly 13 mm, Patella 32 mm. 01/18/2019 Family History Family History Her mother at age 92 from what sounds like breast cancer mass which was not aggressively treated. Also had a hip fracture. Other family history includes hypertension and lung cancer. Family History: Cancer, Hypertension Current Medications Current Medications Current Medications Morphine Sulfate 5 mg/Ketorolac Tromethamine 30 mg/Ropivacaine 60 ml/Epinephrine HCl 0.5 mg/Sodium Chloride 100 ml @ 100 mls/hr 1X ONCE INT ART ; Start 07/19/19 at 06:00; Stop 07/19/19 at 06:59 Active Scripts Active Reported Naprosyn (Naproxen) 500 Mg Tablet 1 Tab PO DAILY Benadryl (Diphenhydramine Hcl) 25 Mg Capsule 25 Mg PO PRN DAILY PRN Lisinopril 20 Mg Tablet 20 Mg PO DAILY Metformin Hcl 500 Mg Tablet 500 Mg PO DAILY Atorvastatin Calcium 20 Mg Tablet 20 Mg PO DAILY08 Triamterene-Hctz 37.5-25 Mg Tb (Triamterene/Hydrochlorothiazid) 1 Each Tablet 0.5 Tab PO DAILY Allergies Allergies: Coded Allergies: No Known Medication Allergies (Verified Allergy, Unknown, 06/28/19) Sulfa (Sulfonamide Antibiotics) (Verified Adverse Reaction, Intermediate, Nausea and Vomiting, 12/27/18) niacin (Verified Adverse Reaction, Intermediate, 12/27/18) HOT FLASHES ROS Review of System CONSTITUTIONAL: Fever denies. Chills denies. Weight gain denies. Weakness none. weight loss denies. Fatigue none. OPHTHALMOLOGY: Blurred vision none. Double vision denies. Change in vision none. ENT: Hearing loss none. Change in voice denies. Rhinorrhea YES. CARDIOLOGY: Palpitations none. Shortness of breath Yes. Chest pain denies. GASTROENTEROLOGY: Diarrhea denies. Vomiting none. Dysphagia none. UROLOGY: Voiding normally yes. Hematuria none. MUSCULOSKELETAL: Chronic back or neck pain denies. Swelling of the feet, hands, ankles and /or legs Right Foot. Joint pain Bilateral Knee and Hip pain. Right Shoulder Pain.. DERMATOLOGY: Rash denies. Lumps none. NEUROLOGY: Dizziness/lightheadedness denies. Double vision, temporary blindness denies. Tingling/numbness none. PSYCHOLOGY: Change in mood or personality denies. Memory loss none. ENDOCRINOLOGY: Obesity denies. Fatigue none. Weight loss none. HEMATOLOGY/LYMPH: Hepatitis denies. Enlarged lymph nodes denies. Physical Exam General: Alert, Cooperative HEENT: Atraumatic Lungs: Normal air movement Abdomen: Soft Extremities: Other (The RIGHT knee shows a mildly antalgic gait. There is varus alignment. No masses. No detectable effusion. Tenderness on the joint lines. Range of motion is 5-90 degrees. There is crepitus with range of motion, and pain at the extremes of motion. The knee is stable to varus and valgus stress without subluxation or laxity. Muscle strength is slightly weak for the addie driceps 4+/5 which may be due to pain or avoidance, and does not seem neurogenic, and the muscle tone and bulk is slightly decreased. The hamstring strength is 5/5. The skin is normal with no scars, rashes, lesions or ulcers. Light touch sensation is intact. No edema and no varicosities. Dorsalis pedis pulse is intact and capillary refill is normal.) Skin: No rashes, No breakdown, No significant lesion Neuro: Normal speech, Normal tone, Sensation intact Images Images Report reviewed, images independently reviewed of the right knee x-rays from 11/29/18. There is [id number] arthritis of the right knee, malalignment, sclerosis, large osteophytes in multiple compartments, possible bone deformity. This is Kellgren Thuan grade 3 osteoarthritis of the right knee. [facility] [address] [place] [address] IMAGING REPORT Signed PATIENT: BRIE DOLL ACCOUNT: [id number] : 1950 LOCATION: [facility] AGE: 68 SEX: F EXAM STATUS: REG CLI ORD. PHYSICIAN: BRIAN HENRY MD REASON: PROCEDURE: KNEE BILAT 3V 3 view study of both knees Clinical indications: Bilateral knee pain for long time. No known injury. Right knee: No acute fracture or dislocation or osteolytic process is seen. There is moderate spurring of the patellofemoral joint compartment. The patella is normally aligned. No significant joint space narrowing of the patellofemoral joint compartment is seen in the sunrise view. There is moderate to severe narrowing of the medial tibiofemoral joint compartment with prominent spurring. There is mild joint space narrowing and spurring of the lateral tibial femoral joint compartment. IMPRESSION: Tricompartmental primary degenerative osteoarthritis of the right knee. Small right knee joint effusion is seen. Left knee: There is moderate to severe narrowing of the medial tibiofemoral joint compartment with moderate spurring. There is mild joint space narrowing and moderate spurring of the lateral tibiofemoral joint compartment. There is lateral subluxation of the tibia with respect to the femur. There is prominent spurring of the patellofemoral joint compartment. The patella is normally aligned. No significant narrowing of the patellofemoral joint compartment is seen in the sunrise view. Small left knee joint effusion is seen. No acute fracture or lytic process is seen. IMPRESSION: Tricompartmental primary degenerative osteoarthritis of the left knee. Small left knee joint effusion. Electronically signed by: Corey Dodd MD (11/29/2018 9:19 AM) [facility] DICTATED and SIGNED BY: COREY DODD MD VTE Prophylaxis Ordered VTE Prophylaxis Devices: Yes VTE Pharmacological Prophylaxi: Yes Assessment/Plan Assessment/Plan Patient is healing well from left TKA and would now like her right knee replaced. We discussed the potential risks of infection, neurovascular injury, bleeding, blood clots, need for revision surgery, or other potential surgical or anesthetic complications. All of her questions were answered and she desires to proceed with surgery at a mutually convenient date. We also discussed postoperative treatment and expectations. I believe we can get an excellent result with traditional instruments, but gave her the option to delay surgery for MRI [employer] templating. She would like to proceed with surgery. BRIAN HENRY MD Jul 18, 2019 12:37
[~2019-07-19] VITALS: Ht 170.2 cm; Wt 116.1 kg
[2019-07-19] VITALS (8 sets, daily range): BP systolic 110–129; BP diastolic 65–73
[~2019-07-19 05:47] MED LIST changes: -ASPI325T11 PO; -OXYC1TAB15 PO
[2019-07-19] MEDS ORDERED: ACETAMINOPHEN 500 MG TABLET PO PRN (06:00)
[2019-07-19] MEDS ORDERED: MORPHINE SULFATE 5 MG, KETOROLAC 30MG VIAL 30 MG, ROPIVacaine 0.5% PF 60 ML, EPINEPHrin... INT ART ONE ×5 (06:00)
[2019-07-19] MEDS ORDERED: TRANEXAMIC ACID 1,000 MG in IV NS 50ML -- 1ST BAG INJ ONE (06:00)
[2019-07-19] MEDS ORDERED: MELOXICAM 7.5 MG TABLET PO PRN (06:00)
[2019-07-19] MEDS ORDERED: LIDOCAINE 2% PF 5 ML VIAL. ONE (06:30)
[2019-07-19] MEDS ORDERED: ONDANSETRON PF 4 MG/2 ML VIAL. ONE (06:30)
[2019-07-19] MEDS ORDERED: PROPOFOL 20 ML IV ONE (06:30)
[2019-07-19] MEDS ORDERED: DEXAMETHASONE SOD PHOS 4 MG/ML VIAL ONE (06:30)
[2019-07-19] MEDS ORDERED: ROCURONIUM 50 MG/5 ML VIAL. ONE (06:31)
[2019-07-19] MEDS: INSULIN LISPRO 100 UNIT/ML 3ML VIAL for OP,RR ONLY. SQ PRN ×3 (06:37→12:08)
[2019-07-19] MEDS: IV RINGERS,LACTATED 1000ML 1,000 ML IV SCH ×2 (06:37→11:35)
[2019-07-19] MEDS ORDERED: VANCOMYCIN 1 GM VIAL. ONE ×2 (06:51→08:34)
[2019-07-19] MEDS ORDERED: TOBRAMYCIN POWDER 1.2 GM VIAL. ONE (06:51)
[2019-07-19] MEDS ORDERED: PROCHLORPERAZINE 10 MG/2 ML VIAL. IV PRN (07:00)
[2019-07-19] MEDS ORDERED: MORPHINE SULFATE 2 MG/ML VIAL. IV PRN ×2 (07:00→10:15)
[2019-07-19] MEDS ORDERED: fentaNYL PF VIAL 100 MCG/2 ML VIAL IV PRN ×3 (07:00→10:15)
[2019-07-19] MEDS ORDERED: ONDANSETRON PF 4 MG/2 ML VIAL. IV PRN (07:00)
[2019-07-19] MEDS ORDERED: HYDROmorphone 2 MG/ML VIAL IV PRN (07:00)
[2019-07-19] MEDS ORDERED: MIDAZOLAM HCL/PF 2 MG/2 ML VIAL. ONE (07:05)
[2019-07-19] MEDS ORDERED: fentaNYL PF VIAL 100 MCG/2 ML VIAL ONE ×2 (07:05→08:10)
[2019-07-19] MEDS ORDERED: FAMOTIDINE 20 MG/2 ML VIAL ONE (07:05)
[2019-07-19] MEDS ORDERED: ePHEDrine PF IN SALINE 50 MG/10 ML SYRINGE. IV ONE (07:44)
[2019-07-19] MEDS ORDERED: TRANEXAMIC ACID 1,000 MG in IV NS 50ML -- 2ND BAG INJ ONE (08:00)
[2019-07-19] MEDS ORDERED: hydrALAZINE 20 MG/ML VIAL. ONE (08:25)
[2019-07-19] MEDS ORDERED: 0.9 % SODIUM CHLORIDE 20 ML VIAL. IJ ONE (08:26)
[2019-07-19] MEDS ORDERED: NEOSTIGMINE METHYLSULFATE 5 MG/5 ML SYRINGE. ONE (09:13)
[2019-07-19] MEDS ORDERED: GLYCOPYRROLATE 1 MG/5 ML VIAL. ONE (09:13)
[2019-07-19] MEDS ORDERED: DESFLURANE > 120 MINUTES IH ONE (09:34)
--- NOTE | 2019-07-19 10:07 | PDOC4 ---
Operative Note Operative Note Date of Procedure: July 19, 2019 Pre-Op Diagnosis: Unilateral primary osteoarthritis, right knee. M17.11 Post-Op Diagnosis: same Procedure: right total knee arthroplasty with patella resurfacing, CPT 93815 Surgeon: Brian Tam MD Community Health Nurse: KELLY Tian Anesthesia: General EBL: 100 mL Specimens Obtained: right knee bone and soft tissue Complications: none Implant Company: [employer] Drains: hemovac plus pain catheter Tourniquet time: 59 Minutes Tourniquet Pressure: 350 mm Hg Indications for Procedure: Arthritis pain unrelieved by nonoperative management. Findings: Severe osteoarthritis with bone on bone contact in all three compartments Implants used: Size 4 right bicruciate stabilized Journey II BCS cobalt chrome femoral component, size 3 right Journey nonporous tibial baseplate, size 3-4 15 mm right Journey II BCS XLPE articular insert, 32 mm oval Nafisa II resurfacing patellar component Procedure in Detail: The patient was identified in the preoperative holding area, and the correct right lower extremity was marked by me. The patient was taken to the operating room where the patient was anesthetized by the Department of Anesthesia. Preoperative antibiotics were given intravenously. Tranexamic acid 1 g was given intravenously for intraoperative hemostasis. A "time-out" procedure was performed. The patient was positioned supine on the operative table with a tourniquet on the upper right thigh. A lateral thigh brace and heel bump were attached to the operating table for later intraoperative positioning. The right lower limb was thoroughly scrubbed, then sterile Chloraprep solution was applied, and the limb was draped in sterile fashion. An impervious stockinet and an adhesive drape were used such that the skin was entirely covered. The operating team wore personal exhaust-ventilated hoods. The limb was exsanguinated with an Esmarch bandage, and the tourniquet was inflated. A midline skin incision was made with a scalpel using the patella and tibial tubercle as landmarks. Electrocautery was used for hemostasis. My program support assistant used rake retractors. A medial parapatellar arthrotomy incision was used with extension into the distal quadriceps tendon. The patella was retracted laterally and Hohmann retractors were now used by my program support assistant. Excess synovium, the menisci, and the cruciate ligaments were resected sharply. A periarticular multimodal ropivacaine anesthetic injection was used in the suprapatellar pouch and distal quadriceps muscle. The patella was everted and exposed. The patella thickness was measured with a caliper, and then cut freehand with a saw, using caliper measurements to assess the resection. The lateral retinaculum was partially released from the lateral patella using electrocautery. Rongeurs were used to make sure there were no remaining exposed patellar osteophytes medially or laterally. The patella was sized, and then drilled for an oval three-peg patella component. Whitesides's line and the transepicondylar axis were marked on the femur. An intramedullary entry drill was used at the intersection of Hawthorne's line with the transepicondlyar axis, and an intramedullary guide was applied at 5 degrees of valgus. The distal femoral cut was cut as planned with 2 mm additional resection due to the flexion contracture and bone deficiency. A posterior ref erencing guide was pinned to the femur, and the rotational alignment was matched to the Camelia's line at 4 degrees of external rotation. The femoral cutting block was adjusted 1 mm anteriorly to prevent femoral notching. My program support assistant held Hohmann retractors and an Army-Birdseye retractor to protect the medial and lateral collateral ligaments, the patellar tendon, the skin and the other soft tissues. A 5-in-1 Journey II cutting guide was then applied and pinned to the femur. The posterior, anterior, and all chamfer cuts were made with the oscillating saw. An extramedullary guide was pinned to the tibia and rotational alignment and the planned resection thickness assessed. An external alignment daija was used to verify the planned cut in the varus-valgus plane and regarding posterior slope referencing the tibial tubercle, the tibial shaft, the ankle joint, and the second metatarsal. The upper tibia was cut made with an oscillating saw. My program support assistant held Hohmann retractors and a posterior cruciate ligament retractor to protect the medial and lateral collateral ligaments, the patellar tendon, the skin, the peroneal nerve and the other soft tissues. The upper tibia was sized with a trial baseplate. The posterior compartment was cleared of osteophytes and loose bodies. The periarticular anesthetic injection was used in the posterior compartment. The box cut for a posterior stabilized component was made. A preliminary reduction was performed with a trial femur, trial tibial baseplate and trial polyethylene. Soft-tissue balancing was now performed, and extension and rotation of the alignments was checked using a guide daija in the tibial trial and a guide pin in the femur. A medial release was required, using a 10 blade scalpel, and a Gross elevator to elevate the medial structures from the upper medial tibia. The stability was assessed using different thicknesses of tibial articular surface to find satisfactory stability and good range of motion. The rotation of the tibial component was marked on the upper tibia. Final trial reduction was now performed verifying patella tracking and tibiofemoral stability and alignment. The tibia preparation was completed with a drill, saw, and fin punch at the previously noted rotation. The final implants were verified and opened. Outer gloves were changed by the operating team. Betadine lavage was used. The bone cuts were irrigated with saline using the adSage InterPulse device and then dried with suction and laparotomy sponges. Two packages of Gomez + Nephew Rally HV bone cement were mixed in powdered form with Vancomycin 1gm and Tobramycin 1.2 gm, and then vacuum-mixed with the monomer, and placed into a cement gun. The cut surfaces of the bone were thoroughly dried with suction and with laparotomy sponges for cement inte rdigitation. The final components were cemented into place. The knee was kept at full extension while the cement hardened, and excess cement was removed. A Betadine lavage was used throughout the surgical exposure, and allowed to sit in contact with the exposed joint surfaces for three minutes while the cement hardened. Tranexamic acid 1 g was redosed intravenously for additional intraoperative hemostasis. The tourniquet was released, and electrocautery was used for hemostasis. A final periarticular anesthetic injection was used for pain relief. A final check of cawjo-oo-lsvnbe and stability was made, and the polyethylene implant final size was chosen. The polyethylene implant was secured to the tibial baseplate, and the knee was reduced a final time and range of motion and stability was confirmed. Thorough irrigation was used. Hemovac and pain catheter were used. Topical Vancomycin 1 gm was used during the closure. The arthrotomy was closed with interrupted [id number] #1 PDS suture. The arth rotomy incision was then run with #1 STRATAFIX Symmetric PDS Plus Knotless suture. The subcutaneous tissues were reapproximated initially with 2-0 PDS. Next the subcuticular layer was reapproximated in a running fashion with #3-0 Stratafix suture by my program support assistant. The skin incision was then covered and reinforced by my program support assistant with Acticoat, followed by a NATASHA single use negative pressure wound therapy dressing Soft roll and an Randy wrap were applied. Needle and sponge counts were correct. There were no apparent complications. The patient returned to the recovery room in stable condition. BRIAN TAM MD Jul 19, 2019 10:07
[2019-07-19] MEDS ORDERED: diphenhydrAMINE 50 MG/ML VIAL IV PRN (10:15)
[2019-07-19] MEDS ORDERED: 0.9 % SODIUM CHLORIDE 10 ML DISP.SYRIN. IV PRN (10:15)
[2019-07-19] MEDS ORDERED: CALCIUM CARBONATE 500 MG TAB.CHEW PO PRN (10:15)
[2019-07-19] MEDS ORDERED: METOCLOPRAMIDE HCL 10 MG/2 ML VIAL. IV PRN (10:15)
[2019-07-19] MEDS ORDERED: IV DEXTROSE 5% 250 ML BAG. IV PRN (10:15)
[2019-07-19] MEDS ORDERED: PROCHLORPERAZINE 5 MG TABLET. PO PRN (10:15)
[2019-07-19] MEDS ORDERED: ZOLPIDEM 5 MG TABLET. PO PRN (10:15)
[2019-07-19] MEDS ORDERED: DEXTROSE 50% 25 GM / 50ML DISP.SYRIN. IV PRN (10:15)
[2019-07-19] MEDS ORDERED: diphenhydrAMINE HCL 25 MG CAPSULE PO PRN (10:15)
[2019-07-19] MEDS ORDERED: MORPHINE SULFATE 4 MG/ML VIAL. IV PRN (10:15)
[2019-07-19] MEDS: fentaNYL PF VIAL 100 MCG/2 ML VIAL IV PRN ×4 (10:33→11:30)
--- NOTE | 2019-07-19 10:36 | RAD ---
KNEE RIGHT 2V History: Postop Comparison: November 29, 2018 Findings: 2 views right knee are submitted. There is now a right total knee arthroplasty. There is drain and gas in the soft tissues. Impression: 1. There is now a right total knee arthroplasty. Electronically signed by: Praneeth Brandon MD (07/19/2019 10:33 AM) [facility]
[2019-07-19] MEDS: TRIAMTERENE/HCTZ 37.5/25MG TABLET. PO SCH (12:00)
[2019-07-19] MEDS: metFORMIN 500 MG TABLET PO SCH (12:00)
[2019-07-19] MEDS: ONDANSETRON PF 4 MG/2 ML VIAL. IV SCH ×2 (12:00→17:55)
[2019-07-19] MEDS: ONDANSETRON ODT 4 MG TAB.RAPDIS. PO SCH ×2 (12:00→17:55)
[2019-07-19] MEDS: oxyCODONE/APAP 5/325 1 TAB TABLET PO PRN ×3 (12:49→22:27)
--- NOTE | 2019-07-19 13:20 | NUR ---
1215 Rec'd from PACU per bed, alert/oriented, dressing to RLE shows some drainage on dane wrap, Chelly dressing intact, Hemovac with sanguinous drainage, IAC capped, SCD on LLE, MARC placed on RLE, IVF infusing into left wrist, stated took Maxzide this am before surgery other medications not taken, oriented to surroundings, call light within reach, spouse at bedside
[2019-07-19] MEDS: SENNOSIDES/DOCUSATE 8.6/50MG TABLET. PO SCH (14:08)
[2019-07-19] MEDS: LISINOPRIL 20 MG TABLET PO SCH (14:08)
[2019-07-19] MEDS: MULTIVITAMIN with MINERAL TABLET. PO SCH (14:08)
--- NOTE | 2019-07-19 15:09 | NUR ---
Took Maxide this am, held Metformin given 2 doses of insulin in PACU
--- NOTE | 2019-07-19 17:56 | NUR ---
Zofran held, no nausea or vomiting
[2019-07-19] MEDS: KETOROLAC 30MG VIAL 30 MG, BUPIVACAINE MPF 0.25% 20 ML, EPINEPHrine 0.5 MG in TOTAL VOL... INT ART SCH (18:50)
[2019-07-19] MEDS: IV NORMAL SALINE 1000ML BAG 1,000 ML IV SCH (19:10)
[2019-07-19] MEDS: ASPIRIN ENTERIC COATED 325 MG TABLET.DR. PO SCH (20:51)
[2019-07-19] MEDS: ATORVASTATIN CALCIUM 20 MG TABLET PO SCH (20:51)
[2019-07-20] MEDS: ONDANSETRON PF 4 MG/2 ML VIAL. IV SCH ×2 (00:16→05:33)
[2019-07-20] MEDS: ONDANSETRON ODT 4 MG TAB.RAPDIS. PO SCH ×2 (00:17→05:33)
[2019-07-20] MEDS: oxyCODONE/APAP 5/325 1 TAB TABLET PO PRN ×5 (02:51→21:12)
[2019-07-20 02:59] VITALS: BP 158/75
[2019-07-20 04:37] LABS: HEMATOCRIT 36.2 % (36.0-47.0)
[2019-07-20] MEDS ORDERED: MAGNESIUM HYDROXIDE 2,400 MG/30 ML ORAL.SUSP. PO PRN (06:00)
[2019-07-20] MEDS: KETOROLAC 30MG VIAL 30 MG, BUPIVACAINE MPF 0.25% 20 ML, EPINEPHrine 0.5 MG in TOTAL VOL... INT ART SCH (06:03)
[2019-07-20 06:04] VITALS: BP 104/63
[2019-07-20] MEDS: MULTIVITAMIN with MINERAL TABLET. PO SCH (07:54)
[2019-07-20] MEDS: SENNOSIDES/DOCUSATE 8.6/50MG TABLET. PO SCH (07:55)
[2019-07-20] MEDS: metFORMIN 500 MG TABLET PO SCH (07:55)
[2019-07-20] MEDS: ASPIRIN ENTERIC COATED 325 MG TABLET.DR. PO SCH ×2 (07:55→21:11)
[2019-07-20] MEDS: MELOXICAM 7.5 MG TABLET PO SCH (07:55)
--- NOTE | 2019-07-20 07:56 | PDOC ---
ORTHO PROGRESS NOTES Subjective Patient with minimal complaints fo pain this morning. Post-op Day: 1 Procedure R TKA Vitals Vital Signs Date Time Temp Pulse Resp B/P (MAP) Pulse Ox O2 Delivery O2 Flow Rate FiO2 07/20/19 06:04 98.2 60 18 104/63 (77) 93 Room Air 98.2 07/19/19 14:45 2.0 Labs Laboratory Tests Test 07/19/19 06:25 07/19/19 06:26 07/19/19 10:17 07/19/19 12:03 Glucose (Fingerstick) 122 mg/dL (70-99) 181 mg/dL (70-99) 188 mg/dL (70-99) Albumin 3.4 g/dL (3.4-5.0) Test 07/19/19 16:26 07/19/19 20:53 07/20/19 04:10 07/20/19 06:35 Glucose (Fingerstick) 132 mg/dL (70-99) 173 mg/dL (70-99) 110 mg/dL (70-99) Hemoglobin 12.0 g/dL (12.0-15.5) Hematocrit 36.2 % (36.0-47.0) Mean Corpuscular Hemoglobin Concent 33 g/dL (31-37) Laboratory Tests Test 07/19/19 10:17 07/19/19 12:03 07/19/19 16:26 07/19/19 20:53 Glucose (Fingerstick) 181 mg/dL (70-99) 188 mg/dL (70-99) 132 mg/dL (70-99) 173 mg/dL (70-99) Test 07/20/19 04:10 07/20/19 06:35 Hemoglobin 12.0 g/dL (12.0-15.5) Hematocrit 36.2 % (36.0-47.0) Mean Corpuscular Hemoglobin Concent 33 g/dL (31-37) Glucose (Fingerstick) 110 mg/dL (70-99) Notes Awake and alert sitting up in chair at bedside Assessment and Plan S/P Right Total Knee Arthroplasty motor and sensory intact distally calf soft and nontender dressing dry and intact PT today BERTA HAYDEN APRN Jul 20, 2019 07:56
[2019-07-20] MEDS: TRIAMTERENE/HCTZ 37.5/25MG TABLET. PO SCH (07:58)
[2019-07-20] MEDS: LISINOPRIL 20 MG TABLET PO SCH (07:58)
--- NOTE | 2019-07-20 09:13 | PDOC ---
PROGRESS NOTES Subjective Subjective Pain controlled. No complaints except lateral patella pain this morning. Objective Vital Signs Vital Signs Date Time Temp Pulse Resp B/P (MAP) Pulse Ox O2 Delivery O2 Flow Rate FiO2 07/20/19 09:03 Room Air 07/20/19 07:58 66 142/67 07/20/19 06:04 98.2 18 93 98.2 07/19/19 14:45 2.0 Physical Exam Dressing intact and dry. Hemovac and pain catheter in place. Thigh and calf soft. Good active range of motion of foot including dorsiflexion and plantar flexion. Cap refill at toes intact. No signs of compartment syndrome, DVT or neurovascular injury. Labs Laboratory Tests Test 07/19/19 06:25 07/19/19 06:26 07/19/19 10:07/19/19 12:03 Glucose (Fingerstick) 122 mg/dL (70-99) 181 mg/dL (70-99) 188 mg/dL (70-99) Albumin 3.4 g/dL (3.4-5.0) Test 07/19/19 16:26 07/19/19 20:53 07/20/19 04:10 07/20/19 06:35 Glucose (Fingerstick) 132 mg/dL (70-99) 173 mg/dL (70-99) 110 mg/dL (70-99) Hemoglobin 12.0 g/dL (12.0-15.5) Hematocrit 36.2 % (36.0-47.0) Mean Corpuscular Hemoglobin Concent 33 g/dL (31-37) Laboratory Tests Test 07/19/19 10:17 07/19/19 12:03 07/19/19 16:26 07/19/19 20:53 Glucose (Fingerstick) 181 mg/dL (70-99) 188 mg/dL (70-99) 132 mg/dL (70-99) 173 mg/dL (70-99) Test 07/20/19 04:10 07/20/19 06:35 Hemoglobin 12.0 g/dL (12.0-15.5) Hematocrit 36.2 % (36.0-47.0) Mean Corpuscular Hemoglobin Concent 33 g/dL (31-37) Glucose (Fingerstick) 110 mg/dL (70-99) Imaging Postop X-rays reviewed by me. Satisfactory TKA alignment, without apparent complications. [facility] [address] [place], [place] [id number] IMAGING REPORT Signed PATIENT: BRIE DOLL ACCOUNT: [id number] : 1950 LOCATION: [facility] AGE: 69 SEX: F EXAM STATUS: ADM IN ORD. PHYSICIAN: BRIAN HENRY MD REASON: POST OP PROCEDURE: KNEE RIGHT 2V KNEE RIGHT 2V History: Postop Comparison: November 29, 2018 Findings: 2 views right knee are submitted. There is now a right total knee arthroplasty. There is drain and gas in the soft tissues. Impression: 1. There is now a right total knee arthroplasty. Electronically signed by: Mitul Medina MD (07/19/2019 10:33 AM) [id number] DICTATED and SIGNED BY: MITUL MEDINA MD DATE: 07/19/19 1033 Assessment Assessment POD 1 TKA Plan Plan of Care Continue POC BRIAN HENRY MD Jul 20, 2019 09:12
[2019-07-20] MEDS: IV NORMAL SALINE 1000ML BAG 1,000 ML IV SCH (10:07)
[2019-07-20] MEDS ORDERED: ONDANSETRON PF 4 MG/2 ML VIAL. IV PRN (12:00)
[2019-07-20] MEDS ORDERED: ONDANSETRON ODT 4 MG TAB.RAPDIS. PO PRN (12:00)
[2019-07-20] MEDS ORDERED: BISACODYL 10 MG SUPP.RECT. PR PRN (16:00)
[2019-07-20 18:23] VITALS: BP 123/62
[2019-07-20] MEDS: ATORVASTATIN CALCIUM 20 MG TABLET PO SCH (21:11)
[2019-07-21] MEDS: oxyCODONE/APAP 5/325 1 TAB TABLET PO PRN ×5 (01:16→21:06)
[2019-07-21 04:46] LABS: HEMATOCRIT 34.2 % (36.0-47.0); HEMOGLOBIN 11.4 g/dL (12.0-15.5)
[2019-07-21 06:00] VITALS: BP 121/71
[2019-07-21] MEDS: ASPIRIN ENTERIC COATED 325 MG TABLET.DR. PO SCH ×2 (08:15→21:06)
[2019-07-21] MEDS: metFORMIN 500 MG TABLET PO SCH (08:15)
[2019-07-21] MEDS: MULTIVITAMIN with MINERAL TABLET. PO SCH (08:15)
[2019-07-21] MEDS: SENNOSIDES/DOCUSATE 8.6/50MG TABLET. PO SCH (08:16)
[2019-07-21] MEDS: MELOXICAM 7.5 MG TABLET PO SCH (08:16)
[2019-07-21] MEDS: TRIAMTERENE/HCTZ 37.5/25MG TABLET. PO SCH (08:18)
[2019-07-21] MEDS: LISINOPRIL 20 MG TABLET PO SCH (08:18)
[2019-07-21] MEDS: IV NORMAL SALINE 1000ML BAG 1,000 ML IV SCH (10:07)
--- NOTE | 2019-07-21 15:07 | PATHOLOGY ---
[facility] Accession Number: [id number] . 01 Material submitted: . knee - RIGHT KNEE BONE AND TISSUE. Modifiers: right . 01 Clinical history: . Right knee osteoarthritis . 02 Diagnosis: Segments of bone and soft tissue, right total knee arthroplasty: - Advanced degenerative arthritis. . (JPM:mm; 07/21/2019) [facility] 07/21/2019 0916 Local . 02 Electronically signed: . Alvaro Ospina MD, Pathologist NPI- [id number] . 01 Gross description: . Received in formalin labeled "Bowdrhenrique, Marguerite, right knee bone and tissue," are multiple segments of bone, including partially fragmented tibial plateau, measuring 14.7 x 12.6 x 1.8 cm in aggregate dimensions. Soft tissue and possible meniscus are present. The specimen displays extensive eburnation of the articular surfaces. There is osteophytic lipping present. Mask Former bone and soft tissue are submitted in cassette A1, following decalcification. ([facility]; 07/20/2019) XDC/XDC 07/21/2019 0913 Local . 02 Pathologist provided ICD-10: M17.11 . 02 CPT . 292586, 706899 Specimen Comment: A courtesy copy of this report has been sent to Specimen Comment: [phone], . Specimen Comment: Report sent to / DR SPEARS Performed at: 01 [facility] [address], [place] [id number] MD Keaton Mabry MD Phone: [phone] Performed at: 02 [facility] [address] [place], [place] [id number] MD Alvaro Ospina MD Phone: [phone]
--- NOTE | 2019-07-21 17:45 | PDOC ---
PROGRESS NOTES Subjective Subjective Pain controlled. No major complaints. Objective Vital Signs Vital Signs Date Time Temp Pulse Resp B/P (MAP) Pulse Ox O2 Delivery O2 Flow Rate FiO2 07/21/19 17:04 Room Air 07/21/19 08:20 72 131/82 07/21/19 06:00 98.7 20 95 98.7 07/21/19 01:16 2.0 Physical Exam NATASHA dressing intact. Pain catheter and drain have been removed. Calf soft and nontender. Good AROM of ankle. Minimal erythema/warmth. Not yet safely ambulating with walker. Requires PT or nursing assistance, and gait belt for safe transition from chair or bed to walker. Labs Laboratory Tests Test 07/19/19 20:53 07/20/19 04:10 07/20/19 06:35 07/20/19 16:39 Glucose (Fingerstick) 173 mg/dL (70-99) 110 mg/dL (70-99) 101 mg/dL (70-99) Hemoglobin 12.0 g/dL (12.0-15.5) Hematocrit 36.2 % (36.0-47.0) Mean Corpuscular Hemoglobin Concent 33 g/dL (31-37) Test 07/21/19 04:42 07/21/19 06:07 07/21/19 11:22 07/21/19 16:22 Hemoglobin 11.4 g/dL (12.0-15.5) Hematocrit 34.2 % (36.0-47.0) Mean Corpuscular Hemoglobin Concent 33 g/dL (31-37) Glucose (Fingerstick) 87 mg/dL (70-99) 88 mg/dL (70-99) 121 mg/dL (70-99) Laboratory Tests Test 07/21/19 04:42 07/21/19 06:07 07/21/19 11:22 07/21/19 16:22 Hemoglobin 11.4 g/dL (12.0-15.5) Hematocrit 34.2 % (36.0-47.0) Mean Corpuscular Hemoglobin Concent 33 g/dL (31-37) Glucose (Fingerstick) 87 mg/dL (70-99) 88 mg/dL (70-99) 121 mg/dL (70-99) Assessment Assessment POD #2 TKA Plan Plan of Care Continue POC. Discharge planning for tomorrow. Aspirin 325 mg po BID and mobilization for DVT prophylaxis. BRIAN HENRY MD Jul 21, 2019 17:45
[2019-07-21 18:12] VITALS: BP 113/56
[2019-07-21] MEDS: ATORVASTATIN CALCIUM 20 MG TABLET PO SCH (21:06)
[2019-07-22] MEDS: oxyCODONE/APAP 5/325 1 TAB TABLET PO PRN ×3 (02:59→13:22)
[2019-07-22 06:19] VITALS: BP 136/73
[2019-07-22 06:45] LABS: HEMATOCRIT 34.3 % (36.0-47.0); HEMOGLOBIN 11.5 g/dL (12.0-15.5)
[2019-07-22 08:23] VITALS: BP 116/74
[2019-07-22] MEDS: SENNOSIDES/DOCUSATE 8.6/50MG TABLET. PO SCH (08:25)
[2019-07-22] MEDS: LISINOPRIL 20 MG TABLET PO SCH (08:25)
[2019-07-22] MEDS: TRIAMTERENE/HCTZ 37.5/25MG TABLET. PO SCH (08:26)
[2019-07-22] MEDS: ASPIRIN ENTERIC COATED 325 MG TABLET.DR. PO SCH (08:26)
[2019-07-22] MEDS: metFORMIN 500 MG TABLET PO SCH (08:26)
[2019-07-22] MEDS: MULTIVITAMIN with MINERAL TABLET. PO SCH (08:26)
[2019-07-22] MEDS: MELOXICAM 7.5 MG TABLET PO SCH (08:26)
[2019-07-22 11:34] VITALS: BP 150/73
--- NOTE | 2019-07-22 11:51 | PDOC ---
PROGRESS NOTES Subjective Subjective No complaints. Planning on discharge today to home. Objective Vital Signs Vital Signs Date Time Temp Pulse Resp B/P (MAP) Pulse Ox O2 Delivery O2 Flow Rate FiO2 07/22/19 11:34 97.6 80 20 150/73 (98) 95 Room Air 97.6 07/21/19 21:06 2.0 Physical Exam NATASHA intact and dry. Good AROM ankle. Calf soft and nontender. Minimal warmth or erythema. Labs Laboratory Tests Test 07/20/19 16:39 07/21/19 04:42 07/21/19 06:07 07/21/19 11:22 Glucose (Fingerstick) 101 mg/dL (70-99) 87 mg/dL (70-99) 88 mg/dL (70-99) Hemoglobin 11.4 g/dL (12.0-15.5) Hematocrit 34.2 % (36.0-47.0) Mean Corpuscular Hemoglobin Concent 33 g/dL (31-37) Test 07/21/19 16:22 07/22/19 06:15 07/22/19 06:16 07/22/19 11:24 Glucose (Fingerstick) 121 mg/dL (70-99) 131 mg/dL (70-99) 90 mg/dL (70-99) Hemoglobin 11.5 g/dL (12.0-15.5) Hematocrit 34.3 % (36.0-47.0) Mean Corpuscular Hemoglobin Concent 34 g/dL (31-37) Laboratory Tests Test 07/21/19 16:22 07/22/19 06:15 07/22/19 06:16 07/22/19 11:24 Glucose (Fingerstick) 121 mg/dL (70-99) 131 mg/dL (70-99) 90 mg/dL (70-99) Hemoglobin 11.5 g/dL (12.0-15.5) Hematocrit 34.3 % (36.0-47.0) Mean Corpuscular Hemoglobin Concent 34 g/dL (31-37) Assessment Assessment POD #3 TKA Plan Plan of Care Discharge planning for today. Continue PT and DVT prophylaxis. F/U 10-14 days in office. BRIAN HENRY MD Jul 22, 2019 11:51
[2019-07-22] MEDS ORDERED: OXYC1TAB15 PO (11:54)
[2019-07-22] MEDS ORDERED: ASPI325T11 PO (11:56)
--- NOTE | 2019-07-22 11:57 | PDOC3 ---
Discharge Summary Visit Information Date of Admission: Jul 19, 2019 Date of Discharge: Jul 22, 2019 Final Diagnosis osteoarthritis right knee aftercare following right total knee arthroplasty Brief Hospital Course Allergies Allergies Coded Allergies Type Severity Reaction Last Updated Verified Sulfa (Sulfonamide Antibiotics) Adverse Reaction Intermediate Nausea and Vomiting 07/19/19 Yes niacin Adverse Reaction Intermediate 07/19/19 Yes Vital Signs Vital Signs Date Time Temp Pulse Resp B/P (MAP) Pulse Ox O2 Delivery O2 Flow Rate FiO2 07/22/19 11:34 97.6 80 20 150/73 (98) 95 Room Air 97.6 07/21/19 21:06 2.0 Lab Results Laboratory Tests Test 07/20/19 16:39 07/21/19 04:42 07/21/19 06:07 07/21/19 11:22 Glucose (Fingerstick) 101 mg/dL (70-99) 87 mg/dL (70-99) 88 mg/dL (70-99) Hemoglobin 11.4 g/dL (12.0-15.5) Hematocrit 34.2 % (36.0-47.0) Mean Corpuscular Hemoglobin Concent 33 g/dL (31-37) Test 07/21/19 16:22 07/22/19 06:15 07/22/19 06:16 07/22/19 11:24 Glucose (Fingerstick) 121 mg/dL (70-99) 131 mg/dL (70-99) 90 mg/dL (70-99) Hemoglobin 11.5 g/dL (12.0-15.5) Hematocrit 34.3 % (36.0-47.0) Mean Corpuscular Hemoglobin Concent 34 g/dL (31-37) Laboratory Tests Test 07/21/19 16:22 07/22/19 06:15 07/22/19 06:16 07/22/19 11:24 Glucose (Fingerstick) 121 mg/dL (70-99) 131 mg/dL (70-99) 90 mg/dL (70-99) Hemoglobin 11.5 g/dL (12.0-15.5) Hematocrit 34.3 % (36.0-47.0) Mean Corpuscular Hemoglobin Concent 34 g/dL (31-37) Brief Hospital Course 69 year old who presented with knee osteoarthritis, for elective total knee arthroplasty. The patient underwent total knee arthroplasty under general anesthesia the day of admission. Perioperative antibiotics and DVT prophylaxis were used. Postoperatively physical therapy and case management were consulted. The patient progressed and is stable for discharge. Discharge Information Condition at Discharge: Stable Follow Up: Weeks Disposition/Orders: D/C to Home Scheduled Aspirin (Aspirin Ec), 325 MG PO BID Atorvastatin Calcium (Atorvastatin Calcium), 20 MG PO DAILY08, (Reported) Lisinopril (Lisinopril), 20 MG PO DAILY, (Reported) Metformin Hcl (Metformin Hcl), 500 MG PO DAILY, (Reported) Naproxen (Naprosyn), 1 TAB PO DAILY, (Reported) Triamterene/Hydrochlorothiazid (Triamterene-Hctz 37.5-25 Mg Tb), 0.5 TAB PO DAILY, (Reported) Scheduled PRN Diphenhydramine Hcl (Benadryl), 25 MG PO PRN DAILY PRN for ITCHING, (Reported) Oxycodone/Apap 5-325 (Percocet 5-325 Mg Tablet ), 1-2 TAB PO PRN Q4HRS PRN for PAIN Patient Instructions Patient Instructions Continue to weight bearing as tolerated with walker. Keep NATASHA dressing intact and dry. Cut off NATASHA "tail" and throw away battery pack on the 7th day after surgery. Tape down NATASHA tail Leave NATASHA dressing intact otherwise. Follow up with Dr. Tam's office in 10-14 days. Call for appointment unless already scheduled. Continue enteric coated aspirin 325 mg by mouth twice a day for 30 days to prevent blood clots. BRIAN TAM MD Jul 22, 2019 11:57
--- NOTE | 2019-07-22 16:01 | NUR ---
Discharged to home per w/c accompanied by spouse, see instruction sheets for information, belongings taken with pt.
== END 2019-07-22 16:05 | disposition home or self-care (01) | DRG 470 ==
LOC: OPSVCIP 05:47 → 4 SOUTHEST 12:15
PROVIDERS: ADMIT Orthopaedic Surgery; ATTEND Orthopaedic Surgery
PROC: 0SRC0J9 Replacement of Right Knee Joint with Synthetic Substitute, Cemented, Open Approach (ICD-10-PCS; principal; 2019-07-19 07:10)
DX: M17.11 Unilateral primary osteoarthritis, right knee (principal); I10 Essential (primary) hypertension; Z96.652 Presence of left artificial knee joint; Z82.49 Family history of ischemic heart disease and other diseases of the circulatory system; Z80.1 Family history of malignant neoplasm of trachea, bronchus and lung; Z88.2 Allergy status to sulfonamides; Z88.8 Allergy status to other drugs, medicaments and biological substances
CPT/HCPCS: 36415; 73560; 82040; 82962; 85014; 85018; 86850; 86900; 86901; 86920; A7015; C1713; J0171; J0360; J0696; J1100; J1815; J1885; J2001; J2250; J2270; J2405; J2704; J2710; J2795; J3010; J3260; J3370; J3490; J7030; J7120; 97116; 97150; 97530; 97535; A4461; C1769; G0378